=== PATIENT | male | born 1995 | race Hispanic/Latino ===

== ENCOUNTER 2021-03-03 14:39 | Outpatient (CLI) | payer BC | END 2021-03-03 14:40 | disposition home or self-care (01) | LOC: BICULT 14:39 | PROVIDERS: ATTEND Family Medicine | DX: N50.89 Other specified disorders of the male genital organs (principal) | CPT/HCPCS: 76870; 93976 ==

== ENCOUNTER 2022-11-08 12:35 | Outpatient (CLI) | payer OTHER | END 2022-11-08 12:36 | disposition home or self-care (01) | LOC: RAD 12:35 | PROVIDERS: ATTEND Family Medicine | DX: R07.89 Other chest pain (principal); N50.89 Other specified disorders of the male genital organs | CPT/HCPCS: 71046 ==